=== PATIENT | female | born 1965 | race African-American/Black ===

== ENCOUNTER 2017-02-10 17:31 | Emergency (ER) | payer OTHER ==
[~2017-02-10] VITALS: Ht 162.6 cm; Wt 79.4 kg
[2017-02-10 19:24] VITALS: BP 141/100
--- NOTE | 2017-02-10 20:35 | NUR ---
PT TAKEN TO BED 4
--- NOTE | 2017-02-10 20:38 | NUR ---
Patient being evaluated by Kahlil at bedside.
--- NOTE | 2017-02-10 20:39 | NUR ---
51Y/ F PRESENTS TO ER C/O BL LOWER LEG SWELLING AND REFFERRED BY PCP TO RULE OUT DVT. PMH STROKE, SEIZURE, HTN, THYROID DZ, FIBROMYALGIA. PT STATES SHE SAW HER PCP TODAY AND WAS REFERRED TO THE ED FOR A BL LOWER LEG US TO RULE OUT DVT. PT HAS BL LOWER LEG SWELLING, THAT IS PAINFUL TO TOUCH, PT RATES PAIN 10/10 TIGHT AND PRESSURE, AND PAIN X1 DAY. PT DENIES SOB, FEVER, N/V/D. PEDAL PULSES ARE +2, + SENSATION, + MOVEMENT. PT HAS HAD SWELLING A ON GOING PROBLEM BUT STATES TODAY IT SEEMS WORSE. PT IS IN BED WITH SIDE RAILS UP X2, AT BEDSIDE, ER MD NOTIFIED OF PT STATUS. VSS, AA&OX4, PT IS ACTING APPROPRIATE FOR HER BASELINE.
--- NOTE | 2017-02-10 20:39 | NUR ---
Ultrasound at bedside.
[2017-02-10 21:40] VITALS: BP 133/97
--- NOTE | 2017-02-10 21:41 | NUR ---
Patient discharged with v/s stable. Written and verbal after care instructions given and explained. Patient verbalized understanding. Ambulatory with steady gait. All questions addressed prior to discharge. Advised to follow up with PMD.
== END 2017-02-10 21:41 | disposition home or self-care (01) ==
LOC: MED 17:31
DX: R60.0 Localized edema (principal); I10 Essential (primary) hypertension; Z90.89 Acquired absence of other organs; Z88.8 Allergy status to other drugs, medicaments and biological substances; Z88.1 Allergy status to other antibiotic agents
CPT/HCPCS: 93970; 99284; Q0092

== ENCOUNTER 2021-04-02 17:16 | Emergency (ER) | payer OTHER ==
[~2021-04-02] VITALS: Ht 162.6 cm; Wt 106.6 kg
[2021-04-02 17:21] VITALS: BP 149/97
[2021-04-02] MEDS ORDERED: HYDROcodone/APAP 5/325 MG 1 TAB TAB PO ONE (18:15)
[2021-04-02] MEDS ORDERED: ACET-8386 PO (18:24)
--- NOTE | 2021-04-02 18:28 | NUR ---
55/F C/O LEFT FOOT PAIN. STATES SHE FRACTURED HER LEFT FOOT ON MONDAY AND IS AWAITING TO SEE A SURGEON STATING PAIN HAS BEEN WORSENING. STATES SHE WAS NOT GIVEN RX FOR PAIN MEDS. DENIES NUMBNESS OR TINGLING, NO OTHER COMPLAINTS AT THIS TIME.
[2021-04-02 18:44] VITALS: BP 149/97
--- NOTE | 2021-04-02 18:44 | NUR ---
Patient discharged with v/s stable. Written and verbal after care instructions ABOUT FOOT PAIN given and explained. Patient alert, oriented and verbalized understanding of instructions. Ambulatory with steady gait. All questions addressed prior to discharge. ID band removed. Patient advised to follow up with PMD. Rx of NORCO 5-325 given. Patient educated on indication of medication including possible reaction and side effects. Opportunity to ask questions provided and answered. EDUCATED ON USE OF NARCOTICS, ADVISED TO NOT DRINK/DRIVE WHILE USING.
== END 2021-04-02 18:44 | disposition home or self-care (01) ==
LOC: MED 17:16
DX: S92.902D Unspecified fracture of left foot, subsequent encounter for fracture with routine healing (principal); I10 Essential (primary) hypertension; E07.9 Disorder of thyroid, unspecified; Z86.73 Personal history of transient ischemic attack (TIA), and cerebral infarction without residual deficits; Z88.0 Allergy status to penicillin; Z88.6 Allergy status to analgesic agent; X50.0XXD Overexertion from strenuous movement or load, subsequent encounter
CPT/HCPCS: 99283

== ENCOUNTER 2021-09-26 15:33 | Emergency (ER) | payer OTHER ==
[~2021-09-26] VITALS: Ht 160 cm; Wt 104.3 kg
[~2021-09-26 15:33] MED LIST: ACET-8386 PO
[2021-09-26 15:51] VITALS: BP 145/74
--- NOTE | 2021-09-26 18:00 | NUR ---
PT AMBULATED TO BED 12
--- NOTE | 2021-09-26 18:20 | NUR ---
55/F PRESENTS TO ED WITH C/O LEFT LEG PAIN. PATIENT REPORTS HAVING SURGERY ON 09/22 ON LEFT LEG S/P FALL. PATIENT REPORTS 11/03 PAIN, STATING SHE NEEDS A REFILL ON PAIN MEDICATION AND REQUESTING HER LEG BE REWRAPPED. PULSES AND SENSATION EQUAL BILATERALLY. SWELLING NOTED TO LEFT LOWER LEG, PATIENT DENIES HEAD OR NECK INJURY FROM FALL.
--- NOTE | 2021-09-26 18:31 | NUR ---
XRAY AT BEDSIDE
--- NOTE | 2021-09-26 19:15 | NUR ---
Pt report given to BLANCA CALVILLO. Transfer of care at this time.
--- NOTE | 2021-09-26 19:15 | NUR ---
Report received from BLANCA Ho. Continuity of pt care at this time.
[2021-09-26] MEDS ORDERED: MORPHINE SULFATE 10 MG/ML VIAL IM ONE (19:55)
[2021-09-26] MEDS ORDERED: ACET-10509 PO (19:59)
[2021-09-26] MEDS ORDERED: HYDR-5191 PO (19:59)
--- NOTE | 2021-09-26 20:07 | NUR ---
pt laying in bed locked in lowest position w x1 iderail up. pt reports 10/10 L leg pain, swelling noted. pt denies numbness or tingling, cap refil <3 sec, +pulses, + rom. breathing even and unlabored, will continue to monitor.
[2021-09-26 20:14] VITALS: BP 157/97
--- NOTE | 2021-09-26 20:34 | NUR ---
Patient discharged with v/s stable. Written and verbal after care instructions given and explained. Patient alert, oriented and verbalized understanding of instructions. Ambulatory with steady gait. All questions addressed prior to discharge. ID band removed. Patient advised to follow up with PMD. Rx of NORCO AND TYLENOL given. Patient educated on indication of medication including possible reaction and side effects. Opportunity to ask questions provided and answered.
== END 2021-09-26 20:34 | disposition home or self-care (01) ==
LOC: MED 15:33
DX: S92.325A Nondisplaced fracture of second metatarsal bone, left foot, initial encounter for closed fracture (principal); S92.335A Nondisplaced fracture of third metatarsal bone, left foot, initial encounter for closed fracture; S92.345A Nondisplaced fracture of fourth metatarsal bone, left foot, initial encounter for closed fracture; I10 Essential (primary) hypertension; E03.9 Hypothyroidism, unspecified; F17.210 Nicotine dependence, cigarettes, uncomplicated; Z71.6 Tobacco abuse counseling; Z86.73 Personal history of transient ischemic attack (TIA), and cerebral infarction without residual deficits; Z86.69 Personal history of other diseases of the nervous system and sense organs; Z98.890 Other specified postprocedural states; Z79.899 Other long term (current) drug therapy; Z79.891 Long term (current) use of opiate analgesic; Z88.0 Allergy status to penicillin; Z88.6 Allergy status to analgesic agent; W18.39XA Other fall on same level, initial encounter; Y92.89 Other specified places as the place of occurrence of the external cause; Y93.89 Activity, other specified; Y99.8 Other external cause status
CPT/HCPCS: 73630; 96372; 99283; J2270